=== PATIENT | female | born 1955 | race Caucasian/White ===

== ENCOUNTER 2020-03-12 10:25 | Day surgery (SDC) | payer OTHER ==
[~2020-03-12] VITALS: Ht 170.2 cm; Wt 137.5 kg
[~2020-03-12 10:25] MED LIST: ASPI325EC; BENADRYL25 MG PO; FAMO20 PO; HYDCHL12.5 PO; IBUP400; METO50ER PO; MIRT30 PO; MIRT30ST; OMEP20ER; Prinivil10 MG PO; Ranitidine HCl150 M1 PO; VICODIN 5-3001 EACH; ZESTRIL40 MG PO
== END 2020-03-12 12:30 | disposition home or self-care (01) ==
LOC: ORSCSDS 10:25
PROVIDERS: Internal Medicine Gastroenterology
PROC: 0DB78ZX Excision of Stomach, Pylorus, Via Natural or Artificial Opening Endoscopic, Diagnostic (ICD-10-PCS; principal; 2020-03-12 11:45)
PROC: 0DB98ZX Excision of Duodenum, Via Natural or Artificial Opening Endoscopic, Diagnostic (ICD-10-PCS; principal; 2020-03-12 11:45)
PROC: 0DB58ZX Excision of Esophagus, Via Natural or Artificial Opening Endoscopic, Diagnostic (ICD-10-PCS; principal; 2020-03-12 11:45)
PROC: 0DJD8ZZ Inspection of Lower Intestinal Tract, Via Natural or Artificial Opening Endoscopic (ICD-10-PCS; principal; 2020-03-12 11:45)
DX: K21.9 Gastro-esophageal reflux disease without esophagitis (principal); K29.70 Gastritis, unspecified, without bleeding; K31.7 Polyp of stomach and duodenum; R10.9 Unspecified abdominal pain; Z12.11 Encounter for screening for malignant neoplasm of colon; Z86.010 Personal history of colon polyps; K44.9 Diaphragmatic hernia without obstruction or gangrene; K57.30 Diverticulosis of large intestine without perforation or abscess without bleeding; K64.1 Second degree hemorrhoids; I10 Essential (primary) hypertension; Z79.899 Other long term (current) drug therapy; Z87.891 Personal history of nicotine dependence; E66.01 Morbid (severe) obesity due to excess calories; Z68.41 Body mass index [BMI] 40.0-44.9, adult
CPT/HCPCS: 43239; G0105; 88305; 88342; J2704; J7120

== ENCOUNTER 2020-03-31 06:04 | Day surgery (SDC) | payer OTHER ==
[~2020-03-31] VITALS: Ht 172.7 cm; Wt 140.3 kg
--- NOTE | 2020-03-31 06:48 | NUR ---
History, Chart, Medications and Allergies reviewed before start of procedure. Patient confirms NPO status and agrees with scheduled surgery. Patient States Post-Procedure ride home has been arranged with her son.
--- NOTE | 2020-03-31 10:05 | NUR ---
GAUZE AND TRANSPARENT OCCLUSIVE DRSG X5 TO ABDOMEN INTACT WITH NO VISIBLE DRAINAGE, SWELLING, ERYTHEMA OR BRUISING NOTED.
--- NOTE | 2020-03-31 10:47 | NUR ---
Discharge instructions reviewed with patient. Patient verbalizes understanding. Copy given to patient to take home.
--- NOTE | 2020-03-31 11:03 | NUR ---
VSS. REPORTS PAIN TO ABDOMEN TOLERABLE AND RATES 2/10. DESCRIBES ABDOMINAL PAIN "PULLING" AND ACHING.
--- NOTE | 2020-03-31 11:10 | NUR ---
VSS. NO DRAINAGE, SWELLING, ERYTHEMA OR BRUISING NOTED TO ABDOMEN. GAUZE AND TRANSPARENT DRESG X5 DRY AND INTACT TO ABDOMEN. UP TO DRESS TO STEADY GAIT. SON HERE TO DRIVE HOME.
== END 2020-03-31 11:11 | disposition home or self-care (01) ==
LOC: ORD 06:04 → ORSCMMR 06:04 → ORD 07:30
PROVIDERS: Surgery
PROC: 0FT44ZZ Resection of Gallbladder, Percutaneous Endoscopic Approach (ICD-10-PCS; principal; 2020-03-31 07:30)
PROC: BF031ZZ Plain Radiography of Gallbladder and Bile Ducts using Low Osmolar Contrast (ICD-10-PCS; principal; 2020-03-31 07:30)
DX: K80.10 Calculus of gallbladder with chronic cholecystitis without obstruction (principal); I10 Essential (primary) hypertension; N18.9 Chronic kidney disease, unspecified; Z87.891 Personal history of nicotine dependence; Z79.899 Other long term (current) drug therapy; E66.01 Morbid (severe) obesity due to excess calories; Z68.42 Body mass index [BMI] 45.0-49.9, adult
CPT/HCPCS: 74300; 88304; A9270-GY; C1729; J0690; J1100; J2250; J2370; J2405; J2704; J3010; J7120